=== PATIENT | female | born 1995 | race Caucasian/White ===

== ENCOUNTER 2018-10-24 09:56 | Emergency (ER) | payer SELFPAY ==
[~2018-10-24] VITALS: Ht 149.9 cm; Wt 50.0 kg
[2018-10-24] MEDS ORDERED: IBUPROFEN 600MG TABLET PO ONE (11:00)
[2018-10-24 11:29] VITALS: BP 120/84
== END 2018-10-24 11:32 | disposition home or self-care (01) ==
LOC: ER 10:17
DX: S10.93XA Contusion of unspecified part of neck, initial encounter (principal); S00.03XA Contusion of scalp, initial encounter; S30.0XXA Contusion of lower back and pelvis, initial encounter; V89.2XXA Person injured in unspecified motor-vehicle accident, traffic, initial encounter; Y93.89 Activity, other specified; Y92.89 Other specified places as the place of occurrence of the external cause; Y99.8 Other external cause status
CPT/HCPCS: 99283